=== PATIENT | male | born 1960 | race Native Hawaiian/Other Pacific Islander ===

== ENCOUNTER 2016-12-26 17:14 | Observation (INO) | payer MEDICAID ==
[2016-12-26 17:18] VITALS: BMI 31.9
--- NOTE | 2016-12-26 18:01 | ED PDOC ---
Arrival/HPI - General Chief Complaint: Syncope Time Seen by Provider: 12/26/16 17:34 Historian: Patient - History of Present Illness Narrative History of Present Illness (Text): 12/26/16 17:58 Patient with past medical history of diabetes, high cholesterol, asthma and acid reflux, reports sudden onset of dizziness with vertigo, palpitations and nausea which he experienced when he was getting up from the toilet seat after he urinated. Patient states that he slowly fell to the ground and had a near syncopal episode, but clearly states he did not loose consciousness. Patient states for the past 2 months he has been having intermittent episodes of palpitations, that are intermittent, lasts for a few minutes, and resolves on its own, not related to exertion. Reports (-) worsening of symptoms with movement of head. Otherwise: (-) lightheadedness, (-) trauma, (+) headache, (-) tinnitus, (-) hearing loss, (-) chest pain, (-) dyspnea, (-) fever, (-) vomiting , (-) diarrhea, (-) syncope, (-) GI bleeding, (-) focal weakness or numbness. Reports no prior episodes in the past. PMD Rossy Pena Past Medical History - Provider Review Nursing Documentation Reviewed: Yes - Tetanus Immunization Tetanus Immunization: Unknown - Past Medical History Past Medical History: No Previous - Cardiac Hx Cardiac Disorders: Yes - Pulmonary Hx Respiratory Disorders: Yes Hx Asthma: Yes (SEASONAL ALLERGIES) - Neurological Hx Neurological Disorder: No - HEENT Hx HEENT Disorder: No - Renal Hx Renal Disorder: No - Endocrine/Metabolic Hx Endocrine Disorders: Yes Hx Diabetes Mellitus Type 2: Yes ("borderline") - Hematological/Oncological Hx Blood Disorders: No - Integumentary Hx Dermatological Disorder: No - Musculoskeletal/Rheumatological Hx Musculoskeletal Disorders: Yes - Gastrointestinal Hx Gastrointestinal Disorders: Yes - Genitourinary/Gynecological Hx Genitourinary Disorders: No - Psychiatric Hx Psychophysiologic Disorder: Yes Hx Depression: Yes Hx Substance Use: No - Past Surgical History Past Surgical History: No Previous - Anesthesia Hx Anesthesia: Yes Hx Anesthesia Reactions: No Hx Malignant Hyperthermia: No - Suicidal Assessment Feels Threatened In Home Enviroment: No Family/Social History - Physician Review Nursing Documentation Reviewed: Yes Family/Social History: No Known Family HX Smoking Status: Never Smoked Hx Alcohol Use: No Hx Substance Use: No Hx Substance Use Treatment: No Allergies/Home Meds Allergies/Adverse Reactions: Allergies ampicillin Allergy (Verified 12/26/16 17:38) RASH fish oil Allergy (Verified 12/26/16 17:38) ITCHING Home Medications: Home Meds Medication Instructions Recorded Confirmed Fenofibrate,Micronized [Lofibra] 134 mg PO DAILY 01/12/15 12/26/16 Montelukast [Singulair] 10 mg PO DAILY 01/12/15 12/26/16 Acetaminophen with Codeine 1 tab PO HS 12/26/16 12/26/16 [Tylenol with Codeine #3 Tablet] Albuterol HFA [Ventolin HFA 90 1 inh INH PRN PRN 12/26/16 12/26/16 mcg/actuation (8 g)] DULoxetine [Cymbalta] 60 mg PO DAILY 12/26/16 12/26/16 Fluticasone/Salmeterol 100/50 1 inh INH BID 12/26/16 12/26/16 [Advair Diskus 100/50] Gabapentin [Neurontin] 300 mg PO HS 12/26/16 12/26/16 Ketotifen Fumarate [Eye Itch 1 drop BOTHEYES BID 12/26/16 12/26/16 Relief] Levocetirizine Dihydrochloride 5 mg PO DAILY 12/26/16 12/26/16 [Xyzal] MetFORMIN [glucoPHAGE] 500 mg PO BID 12/26/16 12/26/16 Modafinil [Provigil] 200 mg PO DAILY 12/26/16 12/26/16 Review of Systems - Review of Systems Constitutional: Normal. absent: Fatigue, Weight Change, Fevers Respiratory: Normal. absent: SOB, Cough, Sputum Cardiovascular: Normal. absent: Chest Pain, Palpitations, Edema Gastrointestinal: Normal. absent: Abdominal Pain, Stool Changes, Appetite Changes Musculoskeletal: Normal. absent: Arthralgias, Back Pain, Neck Pain Skin: Normal. absent: Rash, Pruritis, Skin Lesions Neurological: Normal, Headache. absent: Focal Weakness, Gait Changes, Speech Changes, Facial Droop Physical Exam - Physical Exam Narrative Physical Exam (Text): 12/26/16 18:03 GENERAL APPEARANCE: Patient is awake, alert, oriented x 3, in no acute distress. SKIN: Warm, dry; (-) cyanosis. HEAD: (-) scalp swelling or tenderness. EYES: (-) conjunctival pallor. ENMT: TMs normal. Mucous membranes moist. NECK: (-) tenderness, (-) stiffness, (-) lymphadenopathy. Carotids: (-) bruit. CHEST AND RESPIRATORY: (-) rales, (-) rhonchi, (-) wheezes; breath sounds equal bilaterally. HEART AND CARDIOVASCULAR: (-) irregularity; (-) murmur, (-) gallop. ABDOMEN AND GI: Soft; (-) distention, (-) tenderness, (-) rebound, (-) guarding , (-) palpable masses, (-) flank tenderness. EXTREMITIES: (-) deformity; (-) edema. Distal pulses: present. NEURO AND PSYCH: Mental status as above. gas torch brazier: (+) horizontal nystagmus; Pupils equal & reactive, EOMI, (-) facial asymmetry; (-) dysarthria; tongue and uvula midline. Strength and DTRs symmetric. Gait: normal. Vital Signs Temp Pulse Resp BP Pulse Ox 12/26/16 21:36 87 16 135/85 97 12/26/16 20:33 81 18 130/93 H 97 12/26/16 17:32 98.8 F 88 18 125/85 99 Medical Decision Making ED Course and Treatment: 12/26/16 18:03 56 yo M w/ past medical history of diabetes, high cholesterol, asthma and acid reflux, reports sudden onset of dizziness with vertigo, palpitations and nausea which she experienced when he was getting up from the toilet seat. Plan: -- Labs -- IV fluids -- Urinalysis -- EKG -- CXR -- Reassess and disposition -- CT head EKG: NSR at 87 bpm, (-) acute ST changes, as read by PA. CXR: NAD, as read by PA. Labs reviewed and are within normal limits, glucose is 81, troponin is negative. Chest x-ray shows no acute findings. CT head shows no acute findings as well. Diagnostic results discussed with the patient in great detail. On reevaluation, patient reports significant improvement of his symptoms. Denies any headache, dizziness, chest pain, palpitations or shortness of breath at this time. On exam, lungs are clear to auscultation, cardiac regular rate and rhythm, repeat neuro exam shows no focal findings and patient's able to get up and ambulate without any assistance with a normal gait. Based on history, exam and diagnostic results plan will be for inpatient observation. Patient likely had a near syncopal episode possibly due to hypoglycemia, however considering the patient's PMH and age will need further observation. Patient states he fully agrees with and understands further plan and disposition. I have given the patient opportunity to ask any additional questions. Case d/w medical radiation therapist and with Dr. Escamilla, agrees with plan for inpatient remote tele obs. - Lab Interpretations Lab Results: 12/26/16 18:05 12/26/16 18:05 Lab Results 12/26/16 19:30: Urine Color Light yellow, Urine Appearance Clear, Urine pH 7.0, Ur Specific [place] 1.015, Urine Protein Negative, Urine Glucose (UA) Negative, Urine Ketones Negative, Urine Blood Negative, Urine Nitrate Negative, Urine Bilirubin Negative, Urine Urobilinogen 0.2, Ur Leukocyte Esterase Negative 12/26/16 18:05: Sodium 140, Potassium 4.3, Chloride 105, Carbon Dioxide 27, Anion Gap 12, BUN 12, Creatinine 1.1, Est GFR ( Amer) > 60, Est GFR (Non- Af Amer) > 60, Random Glucose 81, Calcium 9.3, Magnesium 2.1, Total Bilirubin 0.3, AST 33, ALT 46, Alkaline Phosphatase 55, Lactate Dehydrogenase 413, Total Creatine Kinase 123, Troponin I < 0.01, Total Protein 6.9, Albumin 4.0, Globulin 2.9, Albumin/Globulin Ratio 1.4 12/26/16 18:05: WBC 7.6, RBC 4.39, Hgb 12.2 L, Hct 38.1 L, MCV 86.8, MCH 27.8, MCHC 32.0, RDW 13.6, Plt Count 312, MPV 10.1, Gran % 51.6, Lymph % (Auto) 38.6 H , [place] % (Auto) 7.5 H, Eos % (Auto) 1.4 L, Baso % (Auto) 0.9, Gran # 3.94, Lymph # 3.0, [place] # 0.6, Eos # 0.1, Baso # 0.07 12/26/16 17:00: Free T4 1.00, TSH 3rd Generation 0.18 L 12/26/16 17:00: Iron 45, TIBC 439, % Saturation 10 L 12/26/16 17:00: Ferritin Pending, Triglycerides 182 H, Cholesterol 197, LDL Cholesterol Direct 128, HDL Cholesterol 50, Vitamin B12 Pending, Folate Pending I have reviewed the lab results: Yes (Hgb 12/Hct 32, trop (-), Glucose 81) Interpretation: All labs normal - RAD Interpretation Narrative RAD Interpretations (Text): 12/26/16 18:50 CXR: NAD, as read by PA. CT HEAD: HEMORRHAGE: No acute parenchymal, subarachnoid or extra-axial hemorrhage. BRAIN: Suspect minimal chronic periventricular white matter ischemic changes. No evidence of large acute infarct. Mild generalized volume loss. Note that small hyperacute infarct may not be visualized on initial CT imaging. Clinical correlation recommended. VENTRICLES: No evidence of obstructive hydrocephalus CALVARIUM: No acute calvarial fracture seen. PARANASAL SINUSES: Paranasal sinuses well-developed. No fluid levels seen to suggest acute sinusitis new. Minor mucosal thickening seen within 1 or 2 right-sided ethmoid air cells. MASTOID AIR CELLS: Unremarkable as visualized. No inflammatory changes. OTHER FINDINGS: None. IMPRESSION: No acute intracranial hemorrhage. Suspect minimal chronic periventricular white matter ischemic changes. Mild generalized volume loss. Radiology Orders: 12/26/16 17:56 CHEST PORTABLE [RAD] Stat 12/26/16 17:57 HEAD W/O CONTRAST [CT] Stat - Medication Orders Current Medication Orders: Acetaminophen (Tylenol 325mg Tab) 650 mg PO Q6H PRN PRN Reason: Fever >100.4 F Albuterol (Ventolin Hfa 90 Mcg/Actuation (8 G)) puff INH PRN PRN PRN Reason: Shortness of Breath Arformoterol Tartrate (Brovana) 15 mcg IH [id number] PRISCA Budesonide (Pulmicort Respules) 0.25 mg IH [id number] PRISCA Duloxetine HCl (Cymbalta) 60 mg PO DAILY PRISCA Famotidine (Pepcid) 20 mg PO BID PRISCA Gabapentin (Neurontin) 300 mg PO HS PRISCA PRN Reason: Protocol Ibuprofen (Motrin Tab) 600 mg PO Q6H PRN PRN Reason: Pain, Mild (1-3) Insulin Human Lispro (Humalog) 0 units SC ACHS PRICSA PRN Reason: Protocol Lisinopril (Zestril) 5 mg PO DAILY PRISCA Loratadine (Claritin) 10 mg PO DAILY PRISCA Meclizine HCl (Antivert) 25 mg PO TID PRN PRN Reason: Dizziness Montelukast Sodium (Singulair) 10 mg PO DAILY PRISCA Non-Formulary Medication (Acetaminophen With Codeine [Tylenol With Codeine #3 Tablet]) 1 tab PO HS PRISCA Non-Formulary Medication (Fenofibrate,Micronized [Lofibra]) 134 mg PO DAILY PRISCA Non-Formulary Medication (Ketotifen Fumarate [Eye Itch Relief]) 1 drop BOTHEYES BID PRISCA Non-Formulary Medication (Modafinil [Provigil]) 200 mg PO DAILY PRISCA Ondansetron HCl (Zofran Inj) 8 mg IVP Q8H PRN PRN Reason: Nausea/Vomiting Discontinued Medications Sodium Chloride (Sodium Chloride 0.9%) 500 mls @ 500 mls/hr IV .Q1H STA Stop: 12/26/16 19:03 Last Admin: 12/26/16 18:26 Dose: 500 mls/hr Meclizine HCl (Antivert) 25 mg PO STAT STA Stop: 12/26/16 18:08 Last Admin: 12/26/16 18:26 Dose: 25 mg - 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 Disposition/Present on Arrival - Present on Arrival Any Indicators Present on Arrival: No History of DVT/PE: No History of Uncontrolled Diabetes: No Urinary Catheter: No History of Decub. Ulcer: No History Surgical Site Infection Following: Orthopedic Procedures - Disposition Have Diagnosis and Disposition been Completed?: Yes Diagnosis: Near syncope Disposition: HOSPITALIZED Disposition Time: 19:30 Patient Plan: Observation Patient Problems: Current Active Problems Problem Status Onset Near syncope Acute Condition: IMPROVED
[2016-12-26] MEDS ORDERED: Sodium Chloride 0.9% 500 ML IV STA (18:04)
[2016-12-26 18:17] LABS: ADD MANUAL DIFF? NO
[2016-12-26 18:22] LABS: BASO # 0.07 K/mm3 (0.0-2.0); BASO % 0.9 % (0.0-3.0); EOS # 0.1 (0.0-0.7); EOS % 1.4 % (1.5-5.0); GRAN # 3.94 (1.4-6.5); GRAN % 51.6 % (50.0-68.0); HEMATOCRIT 38.1 % (42.0-52.0); LYMPH % 38.6 % (22.0-35.0); MEAN CELL VOLUME 86.8 fL (80.0-105.0); MEAN CORPUSCULAR HEMOGLOBIN 27.8 pg (25.0-35.0); MEAN PLATELET VOLUME 10.1 fl (7.0-11.0); MONO # 0.6 (0.1-0.6); MONO % 7.5 % (1.0-6.0); PLATELET COUNT 312 10^3/uL (120.0-450.0); RED CELL DISTRIBUTION WIDTH 13.6 % (11.5-14.5); WHITE BLOOD COUNT 7.6 10^3/ul (4.5-11.0)
[2016-12-26 18:29] LABS: ALB/GLOB RATIO 1.4 (1.1-1.8); ALKALINE PHOSPHATASE 55 U/L (38-133); ALT/SGPT 46 U/L (7-56); AST/SGOT 33 U/L (15-59); BILIRUBIN,TOTAL 0.3 mg/dL (0.2-1.3); BLOOD UREA NITROGEN 12 mg/dL (7-21); CALCIUM 9.3 mg/dL (8.4-10.5); CARBON DIOXIDE 27 mmol/L (21-33); CHLORIDE 105 mmol/L (98-107); GFR AFRICAN-AMERICAN > 60; GLUCOSE,RANDOM 81 mg/dL (70-110); MAGNESIUM 2.1 mg/dL (1.7-2.2); POTASSIUM 4.3 mmol/L (3.6-5.0); SODIUM 140 mmol/L (132-148); TOTAL PROTEIN 6.9 g/dL (5.8-8.3)
--- NOTE | 2016-12-26 18:36 | CT ---
PROCEDURE: CT scan brain dated 12/26/2016. HISTORY: Near syncope. COMPARISON: Comparison made with prior CT scan brain 08/08/2014 TECHNIQUE: Axial computed tomography images were obtained through the head/brain without intravenous contrast. Radiation dose: Total exam DLP = 725.84 mGy-cm. This CT exam was performed using one or more of the following dose reduction techniques: Automated exposure control, adjustment of the mA and/or kV according to patient size, and/or use of iterative reconstruction technique. FINDINGS: HEMORRHAGE: No acute parenchymal, subarachnoid or extra-axial hemorrhage. BRAIN: Suspect minimal chronic periventricular white matter ischemic changes. No evidence of large acute infarct. Mild generalized volume loss. Note that small hyperacute infarct may not be visualized on initial CT imaging. Clinical correlation recommended. VENTRICLES: No evidence of obstructive hydrocephalus CALVARIUM: No acute calvarial fracture seen. PARANASAL SINUSES: Paranasal sinuses well-developed. No fluid levels seen to suggest acute sinusitis new. Minor mucosal thickening seen within 1 or 2 right-sided ethmoid air cells. MASTOID AIR CELLS: Unremarkable as visualized. No inflammatory changes. OTHER FINDINGS: None. IMPRESSION: No acute intracranial hemorrhage. Suspect minimal chronic periventricular white matter ischemic changes. Mild generalized volume loss.
[2016-12-26 18:48] LABS: TROPONIN I < 0.01 ng/mL
--- NOTE | 2016-12-26 18:50 | RAD ---
HISTORY: near syncope COMPARISON: None available. TECHNIQUE: Chest, one view. FINDINGS: Examination limited by habitus. LUNGS: No focal consolidation. Please note that chest x-ray has limited sensitivity for the detection of pulmonary masses. PLEURA: No significant pleural effusion identified. No definite pneumothorax . CARDIOVASCULAR: The cardiomediastinal silhouette appears within normal limits of size. OSSEOUS STRUCTURES: No acute osseous abnormality identified. VISUALIZED UPPER ABDOMEN: Unremarkable. OTHER FINDINGS: None. IMPRESSION: No focal consolidation, significant pleural effusion, or definite pneumothorax identified.
[2016-12-26] MEDS ORDERED: Albuterol 0.083% Inhal Sol (2.5 mg/3 mL) UD INH PRN (19:44)
--- NOTE | 2016-12-26 19:51 | CP.PCM.HP ---
<GeovanyBucky trejo - Last Filed: 12/26/16 21:17> History of Present Illness - History of Present Illness History of Present Illness: This patient is a 56yo M w/ a PMHx of fibromyalgia, Depression, DM on Metformin , Mild Intermittent Asthma, BPH, obesity, obstructive sleep apnea on CPAP 12/20 % at night, who is coming to the hospital for a near syncopal episode. The patient states that he was urinating, and when he went to stand up from the toilet his vision slowly went black, and he brought himself down to the ground. Before he fell to the ground he states he felt heart palpitations. Earlier in the day, he took off of work because he had a pounding headache, located behind his eyes, that is sometimes associated with eye redness and tearing. He reports he had the headache this morning, not described as the worst headache of his life. He reports that he was only out for a brief moment, and realized that he had urinated on himself during the incident. Denies tongue biting, defecation, or hitting his head/pain anywhere. This has never happened to the patient before. He also states that he feels like he is urinating less frequently now. The patient has a history of a fall 1yr ago, diagnosed with a concussion after which he has been depressed, controlled with medication. He denies fevers/chills , vision changes, double vision, SOB, CP, abdominal pain, N/V/D, dysuria/freq/ urg, or lower extremity pain/swelling. PMhx: as stated above Allergies: PCN and Fish Oil Surgeries: None Fam Hx: denies Social: lives at home with , employed, adequate health literacy, good historian Meds: Tylenol 3 at night, Ventolin, Duloxtine, Febofibrate, Fluticasone, Gabapentin, Ketofen eye drops, Levocetirizine, metformin, Modafinil, [place] In ED a head CT was performed which showed no acute findings. An EKG was done which showed . CBC showed anemia, which the patient was not aware of before ; denies blood per rectum. He will be admitted to remote telemetry for further monitoring. Present on Admission - Present on Admission Any Indicators Present on Admission: No History of DVT/PE: No History of Uncontrolled Diabetes: No Urinary Catheter: No Decubitus Ulcer Present: No Review of Systems - Review of Systems All systems: reviewed and no additional remarkable complaints except Past Patient History - Tetanus Immunizations Tetanus Immunization: Unknown - Past Medical History & Family History Past Medical History?: Yes - Past Social History Smoking Status: Never Smoked - CARDIAC Hx Cardiac Disorders: Yes - PULMONARY Hx Respiratory Disorders: Yes Hx Asthma: Yes (SEASONAL ALLERGIES) - NEUROLOGICAL Hx Neurological Disorder: No - HEENT Hx HEENT Problems: No - RENAL Hx Chronic Kidney Disease: No - ENDOCRINE/METABOLIC Hx Endocrine Disorders: Yes Hx Diabetes Mellitus Type 2: Yes ("borderline") - HEMATOLOGICAL/ONCOLOGICAL Hx Blood Disorders: No - INTEGUMENTARY Hx Dermatological Problems: No - MUSCULOSKELETAL/RHEUMATOLOGICAL Hx Musculoskeletal Disorders: Yes - GASTROINTESTINAL Hx Gastrointestinal Disorders: Yes - GENITOURINARY/GYNECOLOGICAL Hx Genitourinary Disorders: No - PSYCHIATRIC Hx Psychophysiologic Disorder: Yes Hx Depression: Yes Hx Substance Use: No - SURGICAL HISTORY Hx Surgeries: Yes - ANESTHESIA Hx Anesthesia: Yes Hx Anesthesia Reactions: No Hx Malignant Hyperthermia: No Meds Allergies/Adverse Reactions: Allergies Allergy/AdvReac Type Severity Reaction Status Date / Time ampicillin Allergy RASH Verified 12/26/16 17:38 fish oil Allergy ITCHING Verified 12/26/16 17:38 Physical Exam - Constitutional Appears: Well, Non-toxic - Head Exam Head Exam: ATRAUMATIC, NORMAL INSPECTION - Eye Exam Eye Exam: EOMI, Normal appearance, PERRL - ENT Exam ENT Exam: Mucous Membranes Moist - Neck Exam Neck exam: Positive for: Full Rom. Negative for: Lymphadenopathy, Meningismus - Respiratory Exam Respiratory Exam: Clear to Auscultation Bilateral, NORMAL BREATHING PATTERN. absent: Rales, Rhonchi, Wheezes Additional comments: gynecomastia present - Cardiovascular Exam Cardiovascular Exam: REGULAR RHYTHM, +S1, +S2 - GI/Abdominal Exam GI & Abdominal Exam: Normal Bowel Sounds, Soft. absent: Tenderness (obese abdomen ) - Rectal Exam Rectal Exam: Deferred - Extremities Exam Extremities exam: Positive for: full ROM, normal capillary refill, normal inspection, pedal pulses present. Negative for: calf tenderness, joint swelling , pedal edema, tenderness - Back Exam Back exam: NORMAL INSPECTION. absent: CVA tenderness (L), CVA tenderness (R) - Neurological Exam Neurological exam: Alert, CN II-XII Intact, Normal Gait, Oriented x3, Reflexes Normal - Psychiatric Exam Psychiatric exam: Normal Affect, Normal Mood - Skin Skin Exam: Warm Results - Vital Signs Recent Vital Signs: Last Vital Signs Temp 98.8 F 12/26/16 17:32 Pulse 88 12/26/16 17:32 Resp 18 12/26/16 17:32 BP 125/85 12/26/16 17:32 Pulse Ox 99 12/26/16 17:32 - Labs Result Diagrams: 12/26/16 18:05 12/26/16 18:05 Labs: Laboratory Results - last 24 hr 12/26/16 12/26/16 18:05 18:05 WBC 7.6 RBC 4.39 Hgb 12.2 L Hct 38.1 L MCV 86.8 MCH 27.8 MCHC 32.0 RDW 13.6 Plt Count 312 MPV 10.1 Gran % 51.6 Lymph % (Auto) 38.6 H [place] % (Auto) 7.5 H Eos % (Auto) 1.4 L Baso % (Auto) 0.9 Gran # 3.94 Lymph # 3.0 [place] # 0.6 Eos # 0.1 Baso # 0.07 Sodium 140 Potassium 4.3 Chloride 105 Carbon Dioxide 27 Anion Gap 12 BUN 12 Creatinine 1.1 Est GFR ( Amer) > 60 Est GFR (Non-Af Amer) > 60 Random Glucose 81 Calcium 9.3 Magnesium 2.1 Total Bilirubin 0.3 AST 33 ALT 46 Alkaline Phosphatase 55 Lactate Dehydrogenase 413 Total Creatine Kinase 123 Troponin I < 0.01 Total Protein 6.9 Albumin 4.0 Globulin 2.9 Albumin/Globulin Ratio 1.4 Assessment & Plan - Assessment and Plan (Free Text) Assessment: 56yo M admitted for near syncopal Episode Near Syncope -EKG showed NSR with no abnormalities -troponin initially negative; no chest/pain discomfort reported -Telemetry monitoring -Head CT negative -patient reports symptoms have resolved with medicine given in ED (Meclizine) will continue -f/u HbA1C, TSH/FreeT4 -f/u echo Anemia; newly diagnosed -follow up iron studies and vitamins DM -Insulin sliding scale -f/u HbA1C -patient reports that he has a blood pressure machine at home and when EMS picked him up his BP was 175/95; and at times at home has been elevated -Added lisinopril for renal/cardio protective benefits with DM and possible coverage with possible HTN Mild Intermittent Asthma -c/w home meds Depression -c/w home meds; duloxetine Fibromyalgia -c/w home meds; duloxetine, gabapentin Obstructive Sleep Apnea -c/w modafinil; CPAP at night Proph Pepcid SCD Heart Healthy Diet Case discussed and seen with Dr. Francine Ware PGY1 Night Float Decision To Admit - Pt Status Changed To: Hospital Disposition Of: Observation - . Bed Request Type: Remote Telemetry Admitting Physician: Enio Escamilla <Enio Escamilla - Last Filed: 01/07/17 20:49> Results - Vital Signs Recent Vital Signs: Last Vital Signs Temp 97.9 F 12/28/16 06:00 Pulse 109 H 12/28/16 14:00 Resp 20 12/28/16 06:00 BP 104/52 L 12/28/16 06:00 Pulse Ox 94 L 12/28/16 06:00 - Labs Result Diagrams: 12/28/16 05:15 12/28/16 06:00 Attending/Attestation - Attestation I have personally seen and examined this patient.: Yes I have fully participated in the care of the patient.: Yes I have reviewed all pertinent clinical information: Yes
[2016-12-26 20:04] LABS: CHOLESTEROL 197 mg/dL (130-200)
[2016-12-26 20:15] LABS: IRON 45 ug/dL (45-180)
[2016-12-26 20:32] LABS: URINE BILIRUBIN NEGATIVE (NEGATIVE); URINE BLOOD NEGATIVE (NEGATIVE); URINE GLUCOSE (UA) NEGATIVE (NEGATIVE); URINE KETONE NEGATIVE (NEGATIVE); URINE LEUKOCYTE ESTERASE NEGATIVE Leu/uL (NEGATIVE); URINE PROTEIN NEGATIVE mg/dL (<30 mg/dL); URINE UROBILINOGEN 0.2 E.U./dL (<1 E.U./dL)
[2016-12-26 20:36] LABS: THYROID STIMULATING HORMONE 0.18 mIU/mL (0.46-4.68)
[2016-12-26 20:47] LABS: URINE APPEARANCE CLEAR (CLEAR); URINE COLOR LIGHT YELLOW (YELLOW)
[2016-12-26] MEDS ORDERED: [UNRECOGNIZED DRUG - OTHER] PO SCH (22:00)
[2016-12-27] MEDS ORDERED: Pneumococcal 23-Valent Vaccine IM ONE (06:15)
[2016-12-27 06:16] VITALS: RESP 20
[2016-12-27 06:46] LABS: ADD MANUAL DIFF? NO
[2016-12-27 07:05] LABS: BASO # 0.07 K/mm3 (0.0-2.0); BASO % 1.3 % (0.0-3.0); EOS # 0.1 (0.0-0.7); EOS % 2.4 % (1.5-5.0); GRAN # 2.36 (1.4-6.5); GRAN % 42.6 % (50.0-68.0); HEMATOCRIT 36.6 % (42.0-52.0); LYMPH # 2.4 (1.2-3.4); LYMPH % 44.1 % (22.0-35.0); MEAN CELL VOLUME 87.6 fL (80.0-105.0); MEAN CORPUSCULAR HEMOGLOBIN 27.5 pg (25.0-35.0); MEAN CORPUSCULAR HGB CONC 31.4 g/dl (31.0-37.0); MEAN PLATELET VOLUME 10.5 fl (7.0-11.0); MONO # 0.5 (0.1-0.6); MONO % 9.6 % (1.0-6.0); PLATELET COUNT 312 10^3/uL (120.0-450.0); RED CELL DISTRIBUTION WIDTH 13.8 % (11.5-14.5); WHITE BLOOD COUNT 5.5 10^3/ul (4.5-11.0)
[2016-12-27] MEDS: Insulin Lispro (humaLOG) LOW Coverage SC SCH ×4 (07:30→22:03)
[2016-12-27] MEDS: Budesonide 0.25 mg/2 ml Inhal Susp UD IH SCH ×2 (08:15→20:03)
[2016-12-27] MEDS: Arformoterol 15 mcg/2 ml Inh Sol IH SCH ×2 (08:15→20:03)
[2016-12-27 09:42] LABS: ALB/GLOB RATIO 1.3 (1.1-1.8); ALKALINE PHOSPHATASE 58 U/L (38-133); ALT/SGPT 42 U/L (7-56); AST/SGOT 38 U/L (15-59); BILIRUBIN,TOTAL 0.3 mg/dL (0.2-1.3); BLOOD UREA NITROGEN 13 mg/dL (7-21); CALCIUM 8.9 mg/dL (8.4-10.5); CARBON DIOXIDE 29 mmol/L (21-33); CHLORIDE 104 mmol/L (98-107); GFR AFRICAN-AMERICAN > 60; GLUCOSE,RANDOM 130 mg/dL (70-110); POTASSIUM 3.7 mmol/L (3.6-5.0); SODIUM 139 mmol/L (132-148); TOTAL PROTEIN 6.1 g/dL (5.8-8.3)
[2016-12-27] MEDS ORDERED: Fluticasone-Salmeterol 100-50mcg Diskus INH SCH (10:00)
--- NOTE | 2016-12-27 10:33 | CARD ---
APPROVED REPORT EKG Measurement Heart [id number] <Conclusion> Normal sinus rhythm LAD NSSTW changes
--- NOTE | 2016-12-27 12:26 | US ---
PROCEDURE: Bilateral carotid artery duplex ultrasound HISTORY: Carotid stenosis PHYSICIAN(S): Rolando Hayes MD. TECHNIQUE: Duplex sonography and color-flow Doppler were used to evaluate the carotid bifurcations and limited segments of the vertebral arteries bilaterally. FINDINGS: There is mild smooth hypoechoic plaque noted at the carotid bifurcations bilaterally. The peak systolic velocity in the proximal right internal carotid artery is 64 cm/sec. This corresponds to a 20 to 39% proximal right ICA stenosis. Normal systolic velocities are noted in the proximal right external carotid artery. There is antegrade flow in the right vertebral artery. The peak systolic velocity in the proximal left internal carotid artery is 71 cm/sec. This corresponds to a 20 to 39% proximal left ICA stenosis. Normal systolic velocities are noted in the proximal left external carotid artery. There is antegrade flow in the dominant left vertebral artery. IMPRESSION: 1. Bilateral 20-39% proximal ICA stenoses. 2. Antegrade flow in both vertebral arteries.
[2016-12-27] MEDS: MODAFINIL 200 MG PO SCH (12:30)
[2016-12-27] MEDS: KETOTIFEN FUMARATE BOTHEYES SCH ×2 (12:30→18:00)
[2016-12-27] MEDS: FENOFIBRATE MICRONIZED 134 MG PO SCH (12:30)
[2016-12-27 12:33] LABS: FOLATE > 20.0 ng/mL
--- NOTE | 2016-12-27 14:46 | CP.PCM.PN ---
<Harshad Jauregui - Last Filed: 12/27/16 14:43> Subjective - Date & Time of Evaluation Date of Evaluation: 12/27/16 Time of Evaluation: 07:30 - Subjective Subjective: Hospitalist Progress Note: Pt seen and examined at bedside. No acute events overnight. Pt denies any more episodes of syncopy. Denies any chest pain, palpitations, or sob. Pt denies any onofre, dizziness, f/c, abd pain, n/v/d, urinary or bm changes. Objective - Vital Signs/Intake and Output Vital Signs (last 24 hours): Temp Pulse Resp BP Pulse Ox 98.3 F 97 H 20 129/84 97 12/27/16 06:00 12/27/16 12:24 12/27/16 06:00 12/27/16 12:24 12/27/16 06:00 - Medications Medications: Current Medications Acetaminophen (Tylenol 325mg Tab) 650 mg PO Q6H PRN PRN Reason: Fever >100.4 F Albuterol Sulfate (Albuterol 0.083% Inhal Evelyne (2.5 Mg/3 Ml) Ud) 2.5 mg INH [id number] PRN PRN Reason: Shortness of Breath Arformoterol Tartrate (Brovana) 15 mcg IH [id number] [facility] Last Admin: 12/27/16 08:15 Dose: 15 mcg Budesonide (Pulmicort Respules) 0.25 mg IH [id number] [facility] Last Admin: 12/27/16 08:15 Dose: 0.25 mg Duloxetine HCl (Cymbalta) 60 mg PO DAILY [facility] Last Admin: 12/27/16 12:26 Dose: 60 mg Famotidine (Pepcid) 20 mg PO BID [facility] Last Admin: 12/27/16 12:24 Dose: 20 mg Gabapentin (Neurontin) 300 mg PO HS [facility] PRN Reason: Protocol Last Admin: 12/27/16 02:16 Dose: 300 mg Ibuprofen (Motrin Tab) 600 mg PO Q6H PRN PRN Reason: Pain, Mild (1-3) Insulin Human Lispro (Humalog Low) 0 units SC ACHS [facility] PRN Reason: Protocol Lisinopril (Zestril) 5 mg PO DAILY [facility] Last Admin: 12/27/16 12:24 Dose: 5 mg Loratadine (Claritin) 10 mg PO DAILY [facility] Last Admin: 12/27/16 12:24 Dose: 10 mg Meclizine HCl (Antivert) 25 mg PO TID PRN PRN Reason: Dizziness Montelukast Sodium (Singulair) 10 mg PO DAILY [facility] Last Admin: 12/27/16 12:24 Dose: 10 mg Non-Formulary Medication (Acetaminophen With Codeine [Tylenol With Codeine #3 Tablet]) 1 tab PO HS [facility] Non-Formulary Medication (Fenofibrate,Micronized [Lofibra]) 134 mg PO DAILY [facility] Non-Formulary Medication (Ketotifen Fumarate [Eye Itch Relief]) 1 drop BOTHEYES BID [facility] Non-Formulary Medication (Modafinil [Provigil]) 200 mg PO DAILY [facility] Ondansetron HCl (Zofran Inj) 8 mg IVP Q8H PRN PRN Reason: Nausea/Vomiting - Labs Labs: 12/27/16 05:30 12/27/16 05:30 - Constitutional Appears: No Acute Distress - Head Exam Head Exam: ATRAUMATIC, NORMAL INSPECTION, NORMOCEPHALIC - Eye Exam Eye Exam: EOMI, Normal appearance, PERRL Pupil Exam: NORMAL ACCOMODATION, PERRL - ENT Exam ENT Exam: Mucous Membranes Moist, Normal Exam - Neck Exam Neck Exam: Full ROM, Normal Inspection. absent: Lymphadenopathy - Respiratory Exam Respiratory Exam: Clear to Ausculation Bilateral, NORMAL BREATHING PATTERN - Cardiovascular Exam Cardiovascular Exam: REGULAR RHYTHM, +S1, +S2. absent: Murmur - GI/Abdominal Exam GI & Abdominal Exam: Soft, Normal Bowel Sounds. absent: Distended, Tenderness - Extremities Exam Extremities Exam: Full ROM, Normal Capillary Refill, Normal Inspection. absent : Joint Swelling, Pedal Edema - Back Exam Back Exam: NORMAL INSPECTION - Neurological Exam Neurological Exam: Alert, Awake, Oriented x3 - Psychiatric Exam Psychiatric exam: Normal Affect, Normal Mood - Skin Skin Exam: Dry, Intact, Normal Color, Warm Assessment and Plan - Assessment and Plan (Free Text) Assessment: 56 M with pmh of DM, Asthma, Depression, Fibromylagia, JERZY, presents following syncopal episode. 1. Syncope -EKG showed NSR with no abnormalities -troponin x1 negative -Cardiology Dr Alvarez consulted appreciate recs -Neurology Dr Wyatt consulted appreciate recs -Head CT negative for any intracranial hemorrhage -TSH low .17, T4 wnl -F/u echo read -Carotid US - 20-39% prox ICA stenosis, anterograde flow of b/l vertebral artery -CXR- no acute pathology -Follow up orhtostatic Hypotension 2. DM -Insulin sliding scale -f/u HbA1C -patient reports that he has a blood pressure machine at home and when EMS picked him up his BP was 175/95; and at times at home has been elevated -Added lisinopril for renal/cardio protective benefits with DM and possible coverage with possible HTN 3. Mild Intermittent Asthma -c/w home meds 4. Depression -c/w home meds duloxetine 5. Fibromyalgia -c/w home meds duloxetine, gabapentin 6. Obstructive Sleep Apnea -c/w modafinil; CPAP at night 7.GI/DVT ppx - Pepcid & SCD - HHD Case and plan was seen, reviewed, and discussed in detail with Dr Mireles. <Gurdeep Mireles - Last Filed: 12/27/16 16:37> Objective - Vital Signs/Intake and Output Vital Signs (last 24 hours): Temp Pulse Resp BP Pulse Ox 98.3 F 97 H 20 129/84 97 12/27/16 06:00 12/27/16 12:24 12/27/16 06:00 12/27/16 12:24 12/27/16 06:00 Intake and Output: 12/27/16 12/27/16 06:59 18:59 Intake Total 900 Balance 900 - Medications Medications: Current Medications Acetaminophen (Tylenol 325mg Tab) 650 mg PO Q6H PRN PRN Reason: Fever >100.4 F Albuterol Sulfate (Albuterol 0.083% Inhal Evelyne (2.5 Mg/3 Ml) Ud) 2.5 mg INH [id number] PRN PRN Reason: Shortness of Breath Arformoterol Tartrate (Brovana) 15 mcg IH [id number] [facility] Last Admin: 12/27/16 08:15 Dose: 15 mcg Budesonide (Pulmicort Respules) 0.25 mg IH [id number] [facility] Last Admin: 12/27/16 08:15 Dose: 0.25 mg Duloxetine HCl (Cymbalta) 60 mg PO DAILY [facility] Last Admin: 12/27/16 12:26 Dose: 60 mg Famotidine (Pepcid) 20 mg PO BID [facility] Last Admin: 12/27/16 12:24 Dose: 20 mg Gabapentin (Neurontin) 300 mg PO HS [facility] PRN Reason: Protocol Last Admin: 12/27/16 02:16 Dose: 300 mg Ibuprofen (Motrin Tab) 600 mg PO Q6H PRN PRN Reason: Pain, Mild (1-3) Insulin Human Lispro (Humalog Low) 0 units SC ACHS [facility] PRN Reason: Protocol Last Admin: 12/27/16 11:30 Dose: Not Given Lisinopril (Zestril) 5 mg PO DAILY [facility] Last Admin: 12/27/16 12:24 Dose: 5 mg Loratadine (Claritin) 10 mg PO DAILY [facility] Last Admin: 12/27/16 12:24 Dose: 10 mg Meclizine HCl (Antivert) 25 mg PO TID PRN PRN Reason: Dizziness Montelukast Sodium (Singulair) 10 mg PO DAILY [facility] Last Admin: 12/27/16 12:24 Dose: 10 mg Non-Formulary Medication (Acetaminophen With Codeine [Tylenol With Codeine #3 Tablet]) 1 tab PO [facility] Non-Formulary Medication (Fenofibrate,Micronized [Lofibra]) 134 mg PO DAILY [facility] Last Admin: 12/27/16 12:30 Dose: Not Given Non-Formulary Medication (Ketotifen Fumarate [Eye Itch Relief]) 1 drop BOTHEYES BID [facility] Last Admin: 12/27/16 12:30 Dose: Not Given Non-Formulary Medication (Modafinil [Provigil]) 200 mg PO DAILY [facility] Last Admin: 12/27/16 12:30 Dose: Not Given Ondansetron HCl (Zofran Inj) 8 mg IVP Q8H PRN PRN Reason: Nausea/Vomiting - Labs Labs: 12/27/16 05:30 12/27/16 05:30 Attending/Attestation - Attestation I have personally seen and examined this patient.: Yes I have fully participated in the care of the patient.: Yes I have reviewed all pertinent clinical information, including history, physical exam and plan: Yes Notes (Text): 12/27/16 16:31 56 year old male with past medical history of diabetes, depression and fibromyalgia who presented last night with complaint of syncope. Also complained of periods of palpitations. CT head was negative for acute findings. Carotid doppler was reviewed as above. Echocardiogram was done today with report pending. Cardiology and neurology evaluation were also requested. Will check orthostatic vitals and serial cardiac enzymes. TSH was low with normal free T4. Will repeat TSH level. Gurdeep Mireles MD Hospitalist.
[2016-12-27 17:26] LABS: TROPONIN I < 0.01 ng/mL
--- NOTE | 2016-12-27 18:43 | CON ---
DATE: 12/27/2016 CHIEF COMPLAINT: Near syncope/syncope. HISTORY OF PRESENT ILLNESS: A 56-year-old man with past medical history of fibromyalgia? depression, diabetes on metformin, mild intermittent aspirin, BPH, obesity, obstructive sleep apnea on CPAP ____ % at night who was coming in to the hospital for near syncopal episode. The patient was apparently u rinating. When he went to stand up from the toilet, his vision started run black and brought himself down to the ground and fell to the ground as if he was having heart palpitations. Earlier that day, he said he took off work because of pounding diffuse pressure headache behind his eyes without any a uras. Overall, he has never had any syncopal episodes in the past. No history of seizures, no histo ry of tongue biting or bowel or bladder incontinence. No history of meningitis, no history of febril e seizures. His CAT scan of the head showed no acute intracranial abnormalities. Carotid Doppler sh owed 20-39% proximal ICA stenosis with antegrade flow of vertebral arteries. Currently, he is doing much better. No further near syncopal event. He was hydrated. He is on Cymbalta and gabapentin for his underlying questionable fibromyalgia. PAST MEDICAL HISTORY: History of fibromyalgia, diabetes on metformin, obstructive sleep apnea on CPA P, BPH, depression, intermittent aspirin. REVIEW OF SYSTEMS: A 14-point review of systems is negative except as in the HPI. ALLERGIES: AMPICILLIN AND FISH OIL. MEDICATIONS: Reviewed via nurse's reconciliation sheet. FAMILY HISTORY: Noncontributory. SOCIAL HISTORY: No illicit drug use, smoking, or ETOH abuse. PHYSICAL EXAMINATION: VITAL SIGNS: Temperature 98.3, pulse rate of 82, blood pressure of 122/81, respiratory rate 20, oxyg en saturation 97% via room air. GENERAL: The patient is sitting up in bed in no acute distress. HEENT: Atraumatic, normocephalic. PERRLA. Extraocular muscles intact. NECK: Supple. No JVD, no adenopathy noted. LUNGS: Clear to auscultation. No adventitious sounds. HEART: S1, S2, normal rate and rhythm. No murmurs, rubs, or gallops. ABDOMEN: Soft, nontender, nondistended. Bowel sounds are present. EXTREMITIES: No clubbing, no cyanosis. Peripheral pulses are 2+ felt bilaterally. NEUROLOGIC: The patient is alert, oriented to person, place, month, and year. Speech is fluent with out any errors. Cranial nerves II through XII are intact. MOTOR: Moves all extremities equally. Toes are downgoing bilaterally. SENSORY: Decreased light touch and pinprick up the calves bilaterally. Decreased vibration in the t oes. DTRs are 2+ and 1 at the ankles. COORDINATION: [id number] intact. Gait is deferred for now. LABORATORY DATA: Sodium is 139, potassium 3.7, chloride 104, carbon dioxide 29, BUN of 13, creatinin e 1.2, random glucose 130. ASSESSMENT AND PLAN: This is a 56-year-old man with history of diabetes type 2, on metformin, histor y of mild intermittent asthma, hypertension, depression, fibromyalgia on duloxetine and gabapentin, o bstructive sleep apnea on CPAP, had a near syncopal event while he was urinating when he was getting up from the toilet. Near syncopal event was most likely a vasovagal episode. His neuro exam - he onofre s mild diabetic peripheral neuropathy and has myofascial pain ____ fibromyalgia. At this time, recommend: 1. Hydration. 2. Keep his blood sugars between 140-180. 3. Advise CPAP at night daily to prevent further headaches. 4. Advise weight reduction in terms of his obstructive sleep apnea. 5. Recommend him to be on a baby aspirin 81 mg p.o. daily. 6. Avoid sudden movements, and continue with current present management. No further neurological wo rkup needed at this time. We will sign off. Please reconsult if necessary. Drew Wyatt MD cc: [id number] TT: 12/27/2016 18:42:42 Confirmation # [id number] Dictation # [id number] jn
[2016-12-28 06:10] LABS: ADD MANUAL DIFF? NO
[2016-12-28 06:20] LABS: BASO % 1.5 % (0.0-3.0); EOS # 0.1 (0.0-0.7); EOS % 1.9 % (1.5-5.0); GRAN # 3.72 (1.4-6.5); GRAN % 54.1 % (50.0-68.0); HEMATOCRIT 38.5 % (42.0-52.0); LYMPH # 2.3 (1.2-3.4); LYMPH % 33.8 % (22.0-35.0); MEAN CELL VOLUME 87.7 fL (80.0-105.0); MEAN CORPUSCULAR HEMOGLOBIN 27.3 pg (25.0-35.0); MEAN CORPUSCULAR HGB CONC 31.2 g/dl (31.0-37.0); MEAN PLATELET VOLUME 10.3 fl (7.0-11.0); MONO # 0.6 (0.1-0.6); MONO % 8.7 % (1.0-6.0); PLATELET COUNT 321 10^3/uL (120.0-450.0); RED CELL DISTRIBUTION WIDTH 13.7 % (11.5-14.5); WHITE BLOOD COUNT 6.9 10^3/ul (4.5-11.0)
[2016-12-28 06:25] VITALS: BP 104/52; TEMP 97.9; O2SAT 94
[2016-12-28 06:34] LABS: CHOLESTEROL 199 mg/dL (130-200)
[2016-12-28] MEDS ORDERED: Sodium Chloride 0.9% 500 ML IV STA (07:05)
--- NOTE | 2016-12-28 07:49 | CON ---
DATE: 12/27/2016 REASON FOR CONSULTATION: Syncope. 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 He denies any chest pain, denies any shortness of breath, but recently feels the patient has some dyspnea on exertion but unchanged fo r over a year. 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 SOCIAL HISTORY: Denies smoking. Denies any history of alcohol abuse. CURRENT MEDICATIONS: The patient is taking at home Tylenol No. 3 at night, ____ fenofibrate, gabapen tin, metformin and Singulair. REVIEW OF SYSTEMS: As per HPI. FAMILY HISTORY: No significant history of coronary artery disease. PAST SURGICAL HISTORY: No surgical history. PHYSICAL EXAMINATION: VITAL SIGNS: Temperature afebrile, heart rate 82, blood pressure 122/81. HEENT: PERRLA. Extraocular muscles intact. NECK: Supple. No carotid bruits. No thyromegaly. CHEST: Clear to auscultation. HEART: S1, S2 regular. ABDOMEN: Soft. EXTREMITIES: Clubbing and cyanosis negative. EKG shows normal sinus. No acute ST-T changes noted. BLOOD WORKUP: WBC 5.5, hemoglobin 11.____, hematocrit 36.6, platelet count 312. Chemistry shows sod ium ____, potassium 3.____, chloride 104, carbon dioxide ____, anion gap of 10, BUN 13, creatinine of 1.2. IMPRESSION: Syncope, obesity, diabetes, hypertension, hyperlipidemia, multiple risk factors for chu nary artery disease, rule out orthostatic hypotension. PLAN: Echo to rule out any structural heart disease, lipid profile, TSH. Further recommendation dep ending on hospital course. Will follow with you. Thank you, Dr. Mireles, for providing us the opportunity in taking care of this patient. Janae Fajardo MD cc: [id number] TT: 12/28/2016 07:45:29 Confirmation # [id number] Dictation # [id number] mn 12/28/2016 06:48:35
[2016-12-28 08:03] LABS: ALB/GLOB RATIO 1.4 (1.1-1.8); ALKALINE PHOSPHATASE 50 U/L (38-133); ALT/SGPT 43 U/L (7-56); AST/SGOT 30 U/L (15-59); BILIRUBIN,TOTAL 0.3 mg/dL (0.2-1.3); BLOOD UREA NITROGEN 15 mg/dL (7-21); CALCIUM 9.3 mg/dL (8.4-10.5); CARBON DIOXIDE 29 mmol/L (21-33); CHLORIDE 104 mmol/L (98-107); GFR AFRICAN-AMERICAN > 60; GLUCOSE,RANDOM 115 mg/dL (70-110); POTASSIUM 4.4 mmol/L (3.6-5.0); SODIUM 140 mmol/L (132-148); TOTAL PROTEIN 6.6 g/dL (5.8-8.3)
[2016-12-28] MEDS: Arformoterol 15 mcg/2 ml Inh Sol IH SCH (08:11)
[2016-12-28] MEDS: Budesonide 0.25 mg/2 ml Inhal Susp UD IH SCH (08:11)
--- NOTE | 2016-12-28 08:48 | CARD ---
APPROVED REPORT EXAM: Two-dimensional and M-mode echocardiogram with Doppler and color Doppler. Other Information Quality : AverageRhythm : INDICATION Syncope 2D DIMENSIONS Left Atrium (2D)3.3 (1.6-4.0cm)IVSd1.2 (0.7-1.1cm) LVDd3.7 (3.9-5.9cm)PWd1.2 (0.7-1.1cm) LVDs2.6 (2.5-4.0cm)FS (%) 28.3 % LVEF (%)55.0 (>50%) M-Mode DIMENSIONS Aortic Root3.40 (2.2-3.7cm)Aortic Cusp Exc.1.80 (1.5-2.0cm) Aortic Valve AoV Peak Gryuquyg485.0cm/s Mitral Valve MV E Xwcdarkp33.3cm/sMV A Izgfkwti90.3cm/sE/A ratio0.7 TDI E/Lateral E'0.0E/Medial E'0.0 Tricuspid Valve TR Peak [id number]/sRAP [id number] Peak Gr.21mmHg [id number] LEFT VENTRICLE The left ventricle is normal size. There is mild concentric left ventricular hypertrophy. The left ventricular function is normal. The left ventricular ejection fraction is within the normal range. There is normal LV segmental wall motion. RIGHT VENTRICLE The right ventricle is normal size. ATRIA The left atrium size is normal. The right atrium size is normal. The interatrial septum is intact with no evidence for an atrial septal defect. AORTIC VALVE The aortic valve is normal in structure. MITRAL VALVE The mitral valve is normal in structure. TRICUSPID VALVE The tricuspid valve is normal in structure. There is trace tricuspid regurgitation. PULMONIC VALVE The pulmonic valve is not well visualized. There is trace pulmonic valvular regurgitation. GREAT VESSELS The aortic root is normal in size. PERICARDIAL EFFUSION There is no pericardial effusion. <Conclusion> The left ventricle is normal size. There is mild concentric left ventricular hypertrophy. The left ventricular function is normal.
--- NOTE | 2016-12-28 10:38 | PN ---
DATE: 12/28/2016 REASON FOR CONSULTATION AND FOLLOWUP: Syncope. 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 BPH, sleep apnea on 20% at night, admitted with almost passed out and syncope in the bathroom. N o history of any chest pain, shortness of breath. Given the multiple risk factors for coronary arter y disease, echo and stress test are scheduled today. Denies any chest pain. PHYSICAL EXAMINATION: VITAL SIGNS: Temperature afebrile, heart rate 89, blood pressure 104/52. HEENT: PERRLA. Extraocular muscles intact. NECK: Supple. No carotid bruit. No thyromegaly. CHEST: Clear to auscultation. HEART: S1, S2 regular. ABDOMEN: Soft. EXTREMITIES: Clubbing and cyanosis negative. BLOOD WORKUP: As follows: WBC 6.9, hemoglobin 12, hematocrit 38.5, platelet count 321. Chemistry s hows sodium 140, potassium 4.4, chloride 104, carbon dioxide 29, anion gap of 11, BUN 15, creatinine 1.2. IMPRESSION: Syncope, obesity, diabetes, hypertension, hyperlipidemia, off medication, was on Bystoli c, history of sleep apnea, history of fibromyalgia, depression. RECOMMENDATION: Echo and stress. Further recommendation after cardiac noninvasive workup. The yudelka ent also underwent carotid duplex yesterday that shows 20-39% proximal ICA stenosis. The patient had echocardiography done yesterday that shows normal LV function, normal mitral valve, trace tricuspid regurgitation. Essentially normal echo. Further recommendation after the stress test. We will foll ow with you. Thank you, Dr. Mireles, for providing the opportunity in taking care of the patient. Janae Fajardo MD cc: [id number] TT: 12/28/2016 10:37:26 Confirmation # [id number] Dictation # [id number]
[2016-12-28] MEDS ORDERED: Aminophylline 25 mg/ml Inj ONE (10:48)
[2016-12-28] MEDS: Insulin Lispro (humaLOG) LOW Coverage SC SCH (13:02)
[2016-12-28] MEDS: FENOFIBRATE MICRONIZED 134 MG PO SCH (13:02)
[2016-12-28] MEDS: KETOTIFEN FUMARATE BOTHEYES SCH (13:02)
[2016-12-28] MEDS: MODAFINIL 200 MG PO SCH (13:03)
--- NOTE | 2016-12-28 15:05 | CP.PCM.DIS ---
Addendum entered and electronically signed by Harshad Jauregui DO 12/28/16 15:41 : I spoke to Dr Fajardo which recommended that it is ok to send patient home and if the nuclear stress test comes back positive he will call the patient directly when result comes back. Original Note: <Harshad Jauregui - Last Filed: 12/28/16 15:05> Provider - Provider Date of Admission: 12/27/16 17:59 Attending physician: Gurdeep Mireles MD Primary care physician: NO PRIMARY CARE PROVIDER Consults: Cardiology, Neurology Time Spent in preparation of Discharge (in minutes): 45 Hospital Course - Lab Results Lab Results: Most Recent Lab Values WBC 6.9 10^3/ul (4.5-11.0) D 12/28/16 05:15 RBC 4.39 10^6/uL (3.5-6.1) 12/28/16 05:15 Hgb 12.0 gm/dL (14.0-18.0) L 12/28/16 05:15 Hct 38.5 % (42.0-52.0) L 12/28/16 05:15 MCV 87.7 fL (80.0-105.0) 12/28/16 05:15 MCH 27.3 pg (25.0-35.0) 12/28/16 05:15 MCHC 31.2 g/dl (31.0-37.0) 12/28/16 05:15 RDW 13.7 % (11.5-14.5) 12/28/16 05:15 Plt Count 321 10^3/uL (120.0-450.0) 12/28/16 05:15 MPV 10.3 fl (7.0-11.0) 12/28/16 05:15 Gran % 54.1 % (50.0-68.0) 12/28/16 05:15 Lymph % (Auto) 33.8 % (22.0-35.0) 12/28/16 05:15 [place] % (Auto) 8.7 % (1.0-6.0) H 12/28/16 05:15 Eos % (Auto) 1.9 % (1.5-5.0) 12/28/16 05:15 Baso % (Auto) 1.5 % (0.0-3.0) 12/28/16 05:15 Gran # 3.72 (1.4-6.5) 12/28/16 05:15 Lymph # 2.3 (1.2-3.4) 12/28/16 05:15 [place] # 0.6 (0.1-0.6) 12/28/16 05:15 Eos # 0.1 (0.0-0.7) 12/28/16 05:15 Baso # 0.10 K/mm3 (0.0-2.0) 12/28/16 05:15 Sodium 140 mmol/L (132-148) 12/28/16 06:00 Potassium 4.4 mmol/L (3.6-5.0) 12/28/16 06:00 Chloride 104 mmol/L (98-107) 12/28/16 06:00 Carbon Dioxide 29 mmol/L (21-33) 12/28/16 06:00 Anion Gap 11 (10-20) 12/28/16 06:00 BUN 15 mg/dL (7-21) 12/28/16 06:00 Creatinine 1.2 mg/dL (0.5-1.4) 12/28/16 06:00 Est GFR ( Amer) > 60 12/28/16 06:00 Est GFR (Non-Af Amer) > 60 12/28/16 06:00 POC Glucose (mg/dL) 123 mg/dL (65-110) H 12/28/16 07:29 Random Glucose 115 mg/dL (70-110) H 12/28/16 06:00 Hemoglobin A1c 6.5 % (4.2-6.5) 12/28/16 05:15 Calcium 9.3 mg/dL (8.4-10.5) 12/28/16 06:00 Magnesium 2.1 mg/dL (1.7-2.2) 12/26/16 18:05 Iron 45 ug/dL (45-180) 12/26/16 17:00 TIBC 439 ug/dL (261-462) 12/26/16 17:00 % Saturation 10 % (20-55) L 12/26/16 17:00 Ferritin 13.9 ng/mL 12/26/16 17:00 Total Bilirubin 0.3 mg/dL (0.2-1.3) 12/28/16 06:00 AST 30 U/L (15-59) 12/28/16 06:00 ALT 43 U/L (7-56) 12/28/16 06:00 Alkaline Phosphatase 50 U/L (38-133) 12/28/16 06:00 Lactate Dehydrogenase 315 U/L (333-699) L 12/27/16 16:30 Total Creatine Kinase 89 U/L (35-230) 12/27/16 16:30 Troponin I < 0.01 ng/mL 12/27/16 16:30 Total Protein 6.6 g/dL (5.8-8.3) 12/28/16 06:00 Albumin 3.8 g/dL (3.0-4.8) 12/28/16 06:00 Globulin 2.8 gm/dL 12/28/16 06:00 Albumin/Globulin Ratio 1.4 (1.1-1.8) 12/28/16 06:00 Triglycerides 172 mg/dL (35-160) H 12/28/16 05:15 Cholesterol 199 mg/dL (130-200) 12/28/16 05:15 LDL Cholesterol Direct 135 mg/dL (0-129) H 12/28/16 05:15 HDL Cholesterol 49 mg/dL (29-60) 12/28/16 05:15 Vitamin B12 384 pg/mL (239-931) 12/26/16 17:00 25-OH Vitamin D Total 37.8 NG/ML (30.0-100.0) 12/26/16 17:00 Folate > 20.0 ng/mL 12/26/16 17:00 Free T4 1.00 ng/dL (0.78-2.19) 12/26/16 17:00 TSH 3rd Generation 0.3 MIU/ml (0.46-4.68) L 12/27/16 16:30 Urine Color Light yellow (YELLOW) 12/26/16 19:30 Urine Appearance Clear (CLEAR) 12/26/16 19:30 Urine pH 7.0 (4.7-8.0) 12/26/16 19:30 Ur Specific [place] 1.015 (1.005-1.035) 12/26/16 19:30 Urine Protein Negative mg/dL (<30 mg/dL) 12/26/16 19:30 Urine Glucose (UA) Negative mg/dL (NEGATIVE) 12/26/16 19:30 Urine Ketones Negative mg/dL (NEGATIVE) 12/26/16 19:30 Urine Blood Negative (NEGATIVE) 12/26/16 19:30 Urine Nitrate Negative (NEGATIVE) 12/26/16 19:30 Urine Bilirubin Negative (NEGATIVE) 12/26/16 19:30 Urine Urobilinogen 0.2 E.U./dL (<1 E.U./dL) 12/26/16 19:30 Ur Leukocyte Esterase Negative [place]/uL (NEGATIVE) 12/26/16 19:30 Hepatitis A IgM Ab Negative (NEGATIVE) 12/26/16 17:00 Hep Bs Antigen Negative (NEGATIVE) 12/26/16 17:00 Hep B Core IgM Ab Negative (NEGATIVE) 12/26/16 17:00 Hepatitis C Antibody Negative (NEGATIVE) 12/26/16 17:00 - Hospital Course Hospital Course: 56yo M with PMHx of fibromyalgia, Depression, DM on Metformin, Mild Intermittent Asthma, BPH, obesity, obstructive sleep apnea on CPAP at night, presents for syncopal episode. In the Ed basic labwork was done. EKG showed NSR with no abnormalities. Cardiac Iso was negative. Head CT negative for any intracranial hemorrhage. Pt was admitted for syncope work up. Cardiology and Neurology was consulted. Carotid US - 20-39% prox ICA stenosis, anterograde flow of b/l vertebral artery. Cardiology recommended stress test which was done and was normal. Neurology recommended glycemic control 140-180 and aspirin 81mg daily. Echo showed normal LV function. Pt was seen and examined at [facility]. Pt states that his symptoms have improved. No complaints. Denies any onofre, dizziness , syncope, f/c, sob, cp, abd pain, n/v/d. Dx: Syncope - Discharge Exam - Head Exam Head Exam: ATRAUMATIC, NORMAL INSPECTION, NORMOCEPHALIC - Eye Exam Eye Exam: EOMI, Normal appearance, PERRL Pupil Exam: NORMAL ACCOMODATION, PERRL - Respiratory Exam Respiratory Exam: Clear to PA & Lateral, NORMAL BREATHING PATTERN. absent: Rales, Rhonchi, Wheezes - Cardiovascular Exam Cardiovascular Exam: REGULAR RHYTHM, RRR, +S1, +S2 - GI/Abdominal Exam GI & Abdominal Exam: Normal Bowel Sounds, Soft. absent: Distended, Tenderness - Neurological Exam Neurological exam: Alert, CN II-XII Intact, Normal Gait, Oriented x3, Reflexes Normal - Psychiatric Exam Psychiatric exam: Normal Affect, Normal Mood - Skin Skin Exam: Dry, Intact, Normal Color, Warm Discharge Plan - Follow Up Plan Condition: IMPROVED Disposition: HOME/ ROUTINE Patient education suggested?: Yes Instructions: Syncope (DC), Syncope (GEN) Additional Instructions: If your symptoms recur come back to the closest ED. Take your medications as prescribed. Follow up with your PMD in 1-2 days. Referrals: Jacobo Wyatt MD [Staff Provider] - PCP,MICHEL [Primary Care Provider] - Janae Alvarez MD [Staff Provider] - <Gurdeep Mireles - Last Filed: 12/28/16 16:00> Provider - Provider Date of Admission: 12/27/16 17:59 Attending physician: Gurdeep Mireles MD Primary care physician: MICHEL PRIMARY CARE PROVIDER Hospital Course - Lab Results Lab Results: Most Recent Lab Values WBC 6.9 10^3/ul (4.5-11.0) D 12/28/16 05:15 RBC 4.39 10^6/uL (3.5-6.1) 12/28/16 05:15 Hgb 12.0 gm/dL (14.0-18.0) L 12/28/16 05:15 Hct 38.5 % (42.0-52.0) L 12/28/16 05:15 MCV 87.7 fL (80.0-105.0) 12/28/16 05:15 MCH 27.3 pg (25.0-35.0) 12/28/16 05:15 MCHC 31.2 g/dl (31.0-37.0) 12/28/16 05:15 RDW 13.7 % (11.5-14.5) 12/28/16 05:15 Plt Count 321 10^3/uL (120.0-450.0) 12/28/16 05:15 MPV 10.3 fl (7.0-11.0) 12/28/16 05:15 Gran % 54.1 % (50.0-68.0) 12/28/16 05:15 Lymph % (Auto) 33.8 % (22.0-35.0) 12/28/16 05:15 [place] % (Auto) 8.7 % (1.0-6.0) H 12/28/16 05:15 Eos % (Auto) 1.9 % (1.5-5.0) 12/28/16 05:15 Baso % (Auto) 1.5 % (0.0-3.0) 12/28/16 05:15 Gran # 3.72 (1.4-6.5) 12/28/16 05:15 Lymph # 2.3 (1.2-3.4) 12/28/16 05:15 [place] # 0.6 (0.1-0.6) 12/28/16 05:15 Eos # 0.1 (0.0-0.7) 12/28/16 05:15 Baso # 0.10 K/mm3 (0.0-2.0) 12/28/16 05:15 Sodium 140 mmol/L (132-148) 12/28/16 06:00 Potassium 4.4 mmol/L (3.6-5.0) 12/28/16 06:00 Chloride 104 mmol/L (98-107) 12/28/16 06:00 Carbon Dioxide 29 mmol/L (21-33) 12/28/16 06:00 Anion Gap 11 (10-20) 12/28/16 06:00 BUN 15 mg/dL (7-21) 12/28/16 06:00 Creatinine 1.2 mg/dL (0.5-1.4) 12/28/16 06:00 Est GFR ( Amer) > 60 12/28/16 06:00 Est GFR (Non-Af Amer) > 60 12/28/16 06:00 POC Glucose (mg/dL) 123 mg/dL (65-110) H 12/28/16 07:29 Random Glucose 115 mg/dL (70-110) H 12/28/16 06:00 Hemoglobin A1c 6.5 % (4.2-6.5) 12/28/16 05:15 Calcium 9.3 mg/dL (8.4-10.5) 12/28/16 06:00 Magnesium 2.1 mg/dL (1.7-2.2) 12/26/16 18:05 Iron 45 ug/dL (45-180) 12/26/16 17:00 TIBC 439 ug/dL (261-462) 12/26/16 17:00 % Saturation 10 % (20-55) L 12/26/16 17:00 Ferritin 13.9 ng/mL 12/26/16 17:00 Total Bilirubin 0.3 mg/dL (0.2-1.3) 12/28/16 06:00 AST 30 U/L (15-59) 12/28/16 06:00 ALT 43 U/L (7-56) 12/28/16 06:00 Alkaline Phosphatase 50 U/L (38-133) 12/28/16 06:00 Lactate Dehydrogenase 315 U/L (333-699) L 12/27/16 16:30 Total Creatine Kinase 89 U/L (35-230) 12/27/16 16:30 Troponin I < 0.01 ng/mL 12/27/16 16:30 Total Protein 6.6 g/dL (5.8-8.3) 12/28/16 06:00 Albumin 3.8 g/dL (3.0-4.8) 12/28/16 06:00 Globulin 2.8 gm/dL 12/28/16 06:00 Albumin/Globulin Ratio 1.4 (1.1-1.8) 12/28/16 06:00 Triglycerides 172 mg/dL (35-160) H 12/28/16 05:15 Cholesterol 199 mg/dL (130-200) 12/28/16 05:15 LDL Cholesterol Direct 135 mg/dL (0-129) H 12/28/16 05:15 HDL Cholesterol 49 mg/dL (29-60) 12/28/16 05:15 Vitamin B12 384 pg/mL (239-931) 12/26/16 17:00 25-OH Vitamin D Total 37.8 NG/ML (30.0-100.0) 12/26/16 17:00 Folate > 20.0 ng/mL 12/26/16 17:00 Free T4 1.00 ng/dL (0.78-2.19) 12/26/16 17:00 TSH 3rd Generation 0.3 MIU/ml (0.46-4.68) L 12/27/16 16:30 Urine Color Light yellow (YELLOW) 12/26/16 19:30 Urine Appearance Clear (CLEAR) 12/26/16 19:30 Urine pH 7.0 (4.7-8.0) 12/26/16 19:30 Ur Specific [place] 1.015 (1.005-1.035) 12/26/16 19:30 Urine Protein Negative mg/dL (<30 mg/dL) 12/26/16 19:30 Urine Glucose (UA) Negative mg/dL (NEGATIVE) 12/26/16 19:30 Urine Ketones Negative mg/dL (NEGATIVE) 12/26/16 19:30 Urine Blood Negative (NEGATIVE) 12/26/16 19:30 Urine Nitrate Negative (NEGATIVE) 12/26/16 19:30 Urine Bilirubin Negative (NEGATIVE) 12/26/16 19:30 Urine Urobilinogen 0.2 E.U./dL (<1 E.U./dL) 12/26/16 19:30 Ur Leukocyte Esterase Negative [place]/uL (NEGATIVE) 12/26/16 19:30 Hepatitis A IgM Ab Negative (NEGATIVE) 12/26/16 17:00 Hep Bs Antigen Negative (NEGATIVE) 12/26/16 17:00 Hep B Core IgM Ab Negative (NEGATIVE) 12/26/16 17:00 Hepatitis C Antibody Negative (NEGATIVE) 12/26/16 17:00 Attending/Attestation - Attestation I have personally seen and examined this patient.: Yes I have fully participated in the care of the patient.: Yes I have reviewed all pertinent clinical information, including history, physical exam and plan: Yes Notes (Text): 12/28/16 15:53 56 year old male with past medical history of diabetes, depression and fibromyalgia who presented with complaint of syncope and also periods of palpitations. CT head was negative for acute findings. Carotid doppler and echocardiogram were reviewed as above. Serial cardiac enzymes were negative. TSH was mildly low with normal free T4. Recommended to repeat TFTs in 4-6 weeks as outpatient. Patient was seen by cardiology and neurology. He had stress test this morning; first part is negative. He is cleared for discharge by cardiology and will be called with nuclear part of stress test. Patient is discharged home. Follow up with pmd. Gurdeep Mireles MD Hospitalist.
[2016-12-28 16:09] VITALS: PULSE 109
--- NOTE | 2016-12-28 20:56 | CARD ---
APPROVED REPORT Protocol: LEXISCAN Test Type: Lexiscan Sestamibi Stress Test Attending Physician: Dr. Janae Alvarez Referring Physician: Dr. Lisa Israel Test Indications: Syncope Height:5 ft 8 in Weight:205lbs Medications: Brovana,Aspirin,Pulmicort, Cymbalta,Pepcid,Neurontin, Motrin,Insulin,Zestril,Claritin, Antivert,Fenofibrate,Provigil Medical History: 56 y/o male. Hx of hypertension,asthma, diabetic. Target HR: 163 bpm Resting ECG: RSR. Resting Heart Rate: 83 bpm Resting Blood Pressure: 126/90mmHg Submaximum (85%): 139 bpm PROCEDURE Pharmacologic stress testing was performed using 0.4mg per 5ml of regadenoson given intravenously over 7-10 seconds. POST EXERCISE Reason for Termination: Protocol completed Target HR: No Max HR: 93 bpm 71% of Maximum Predicted HR: 163 bpm Exercise duration: 00:30 min:sec, 0 Stage Exercise capacity: 1.0METs Max Blood Pressure: 128/78mmHg Blood Pressure response to exercise: normal resting BP - appropriate response Heart Rate response to exercise: appropriate Chest Pain: No, none Angina index: 0 Arrhythmia: No, none ST Change: No, none Deviation: 0 mm TEST SUMMARY [id number]. INFUSIONDOSE [id number]/.0. [id number]. INTERPRETATION Stress EKG Conclusion: IV LEXISCAN NUCLEAR STRESS TEST NEGATIVE FOR CHEST PAIN AND NEGATIVE FOR ST-TCHANGES. NUCL;EAR SCAN REPORT PENDING. Signed by Janae Alvarez Electronically Approved: 12/28/2016 12:34:43 EXAM: Myocardial Perfusion REST/STRESS Stress Test Type: Pharmacologic Imaging Protocol Rest Spect myocardial perfusion imaging was performed in supine position 45 minutes following the injection of 10.3 mCi of Tc-99 Myoview. At peak stress, the patient was injected intravenously with 30.5mCi of Tc-99 tetrofosmin after an infusion time of 0 minutes and 10 seconds. Gated Stress Spect was performed 60 minutes after intravenous Tc-99 Myoview injection. The images were gated to evaluate regional wall motion and calculate ventricular ejection fraction.Images were reconstructed using backfilter projection method in short horizontal and verticle long axis. Spect slices were generated. LV Perfusion The quality of the study is good. The left ventricle is within normal limits in size. The right ventricle is unremarkable. The lung uptake is normal. The distribution of tracer reveals mildly to moderately decreased perfusion in the mid to basal inferior wall on the stress study. The remainder of the LV myocardium is unremarkable. The rest myocardial perfusion study shows no significant change. Wall Motion Wall motion study shows good contractility of the left ventricle. LVEF = 81%. Conclusion 1. Essentially normal SPECT myocardial perfusion study. 2. Fixed, inferior defect is most likely due to diaphrgmatic attenuation. 3. Normal gated wall motion and thicknening of the left ventricle.
== END 2016-12-28 16:34 | disposition home or self-care (01) ==
LOC: ED 17:14 → ERH 20:30 → 2RNO 12-27 03:59 → INTOOBSV 12-27 17:59 → OBSVTOIN 12-27 17:59
PROVIDERS: ADMIT Hospitalist; ATTEND Internal Medicine
DX: R55 Syncope and collapse (principal); K21.9 Gastro-esophageal reflux disease without esophagitis; E11.42 Type 2 diabetes mellitus with diabetic polyneuropathy; D64.9 Anemia, unspecified; E78.00 Pure hypercholesterolemia, unspecified; J45.20 Mild intermittent asthma, uncomplicated; I65.23 Occlusion and stenosis of bilateral carotid arteries; I10 Essential (primary) hypertension; M17.0 Bilateral primary osteoarthritis of knee; G47.33 Obstructive sleep apnea (adult) (pediatric); N40.0 Benign prostatic hyperplasia without lower urinary tract symptoms; E66.9 Obesity, unspecified; E78.5 Hyperlipidemia, unspecified; F32.9 Major depressive disorder, single episode, unspecified; M79.7 Fibromyalgia; Z91.81 History of falling
CPT/HCPCS: 36415; 70450; 71010; 78452; 80053; 80061; 80074; 81003; 82306; 82550; 82607; 82728; 82746; 82948; 83036; 83540; 83550; 83615; 83735; 84439; 84443; 84484; 85025; 93005; 93017; 93306; 93880; 94640; 94760; 99285; A9502; G0378; J7040